=== PATIENT | female | born 1990 | race Caucasian/White ===

== ENCOUNTER 2016-09-28 15:00 | Inpatient (IN) | payer OTHER ==
--- NOTE | ~2016-09-28 | PN ---
Unit #: [id number] #: [id number] Patient: DENISE MCCLELLAND [id number] [facility] [address] [place] [address] [id number] MR#: [id number] NAME: DENISE MCCLELLAND. ROOM: P178 Age: 26 Sex: F Admission Date: 09/28/2016 : 1990 Attending Physician: Sanford Perry M.D. Admitting Physician: Sanford Perry M.D. Primary Care Physician: Primary Care Physician Lavonne ODELL PROGRESS NOTES DATE 09/30/2016 DISCUSSION The patient is abed today with little participation within the therapeutic milieu. She is reporting that she "feels unstable" and request medication "to get me stabilized" I have explained to the patient that it will not possible to "stabilize her" as long as she is a. homeless and b. continuously using drugs. She is expressing interest in residential chemical dependence treatment and I will ask a social media strategist to see her regarding this. Dictated by... Sanford Perry M.D. CB/americo TD: 09/30/2016 22:39 JOB #: [id number] [facility] PROGRESS NOTES Page 1 of 1 X Sanford Perry MD PROGRESS NOTE
--- NOTE | ~2016-09-28 | HP ---
Unit #: [id number] #: [id number] Patient: KARLA MCCLELLAND [id number] [place] [address] [id number] MR#: [id number] NAME: KARLA MCCLELLAND. ROOM: P178 Age: 26 Sex: F Admission Date: 09/28/2016 : 1990 Attending Physician: Sanford Perry M.D. Admitting Physician: Sanford Perry M.D. Primary Care Physician: Primary Care Physician No HISTORY AND PHYSICAL HISTORY OF PRESENT ILLNESS Karla is a 26 year old admitted to [facility] because of her continued polysubstance abuse which includes methamphetamine and heroin. PAST MEDICAL HISTORY Long history of polysubstance abuse to include IV drugs. PAST SURGICAL HISTORY x1. ALLERGIES No known drug allergies. SOCIAL HISTORY Smokes one pack per day. Denies alcohol. Admits to long history of illicit substance abuse to include methamphetamine and IV heroin. FAMILY HISTORY Medically noncontributory. REVIEW OF SYSTEMS CONSTITUTIONAL: No fever or chills. HEENT: Denies any sore throat, ear pain or runny nose. CARDIOVASCULAR: Denies chest pain, irregular heart rhythm or palpitations. CHEST: Denies shortness of breath or cough. No hemoptysis. GASTROINTESTINAL: Denies nausea, vomiting, diarrhea or chronic constipation. ENDOCRINE: Denies history of increased thirst or urination. No recent significant weight loss or gain. GENITOURINARY: Denies dysuria, frequency, or hematuria. SKIN: Denies any rashes. HEMATOLOGIC: Denies history of increased bleeding or bruising. MUSCULOSKELETAL: Denies any hot, swollen joints. No generalized muscle pain. NEUROLOGIC: Denies problems with vision or speech. No frequent, severe headaches. No numbness, tingling or weakness in any extremities. Denies loss of bladder or bowel control. CURRENT MEDICATIONS Detox protocol. PHYSICAL EXAMINATION GENERAL: Alert, well nourished. No apparent distress. Unit #: [id number] #: [id number] Patient: KARLA MCCLELLAND VITAL SIGNS: Blood pressure 116/72, heart rate 80, respirations 16, and temperature 98.6. WEIGHT: 138. HEIGHT: 5 feet 5 inches. SKIN: Warm and dry without rash or lesion. HEENT: Normocephalic. TMs not viewed. Oral and nasal passages clear. Conjunctivae clear. PERRLA. EOMs intact. NECK: Supple without lymphadenopathy or thyromegaly. HEART: Regular rate and rhythm without murmur. LUNGS: Clear. ABDOMEN: Soft, nontender. : Not done. EXTREMITIES: No evidence of cyanosis, clubbing or edema. Moves all without focal deficit. NEUROLOGICAL: Grossly within normal limits. Cranial Nerves: II: Visual stout are intact. III, IV AND : Extraocular movements are intact. Pupils are equal, round and reactive to light. V: Facial sensation is grossly normal. VII: Facial movements and expression are normal. VIII: Auditory acuity grossly intact. IX, X: Uvula is midline. Phonation is normal. XI: Patient shrugs shoulders and turns head normally. XII: Tongue protrudes in the midline. Sensory and Motor Function: Sensory and motor sensation is grossly normal. Motor: moves all extremities well. Coordination: Gait is normal. Deep Tendon Reflexes: Intact. IMPRESSION Psychiatric admission. RECOMMENDATIONS PSYCHIATRIC: Per psychiatrist. MEDICAL: I see no contraindication to participate in this facility's activities. MEDICAL PROGNOSIS Good. MEDICAL CONDITION Stable. Dictated by... Heike Mullins PAriAAri-C. for Stephen Suh/christine TD: 09/29/2016 08:41 JOB #: [id number] Unit #: [id number] #: [id number] Patient: KARLA MCCLELLAND HISTORY AND PHYSICAL Page 1 of 1 X Heike Mullins X HISTORY AND PHYSICAL
--- NOTE | ~2016-09-28 | CO ---
Unit #: [id number] #: [id number] Patient: KARLA MCCLELLAND [id number] [place] [address] [id number] MR#: [id number] NAME: KARLA MCCLELLAND. ROOM: P178 Age: 26 Sex: F Admission Date: 09/28/2016 : 1990 Attending Physician: Sanford Perry M.D. Primary Care Physician: Primary Care Physician No Consultation Date: 10/01/2016 CONSULTATION REPORT HISTORY OF PRESENT ILLNESS Karla has complaints of urinary frequency. She is unsure how long she has had this frequency. She also has complaints of mild lower back pain believes this could be due to detox. She is waking at night to urinate as well. No burning with urination. No blood in her urine. No fever. No other complaints. PHYSICAL EXAMINATION CARDIAC: Regular rate and rhythm. No murmurs, gallops, or rubs. RESPIRATORY: Clear to auscultation bilaterally. ABDOMEN: Bowel sounds positive in all four quadrants. No abdominal tenderness with palpation. No CVA tenderness or flank pain. DIAGNOSTIC STUDIES LABORATORY RESULTS: UA on 09/29/2016 shows positive nitrites. ASSESSMENT AND PLAN Urinary tract infection. We will begin Bactrim p.o. b.i.d. for 3 days. Please notify if symptoms are unresolved. Dictated by... Margarita Corbett A.P.R.N. for Stephen Suh/dasha TD: 10/01/2016 23:37 JOB #: [id number] CONSULTATION REPORT Page 1 of 1 X MARGARITA HANSEN APRN X CONSULTATION REPORT
--- NOTE | ~2016-09-28 | PA ---
Unit #: [id number] #: [id number] Patient: DENISE MCCLELLAND [id number] [place] [address] [id number] MR#: [id number] NAME: DENISE MCCLELLAND. ROOM: P178 Age: 26 Sex: F Admission Date: 09/28/2016 : 1990 Date of Assessment: 09/29/2016 Attending Physician: Sanford Perry M.D. Admitting Physician: Sanford Perry M.D. Primary Care Physician: Primary Care Physician No PSYCHIATRIC ASSESSMENT IDENTIFYING INFORMATION The patient is a 26-year-old white female admitted after voicing positive suicidal ideation with plan to overdose. CHIEF COMPLAINT None given. INFORMANT(S) Chart. Patient cannot be aroused for interview. HISTORY OF PRESENT ILLNESS The patient is a 26-year-old single white female admitted reporting abuse of multiple substances including Suboxone, Xanax, and methamphetamine. The patient reported plan to overdose on Xanax and opiates yesterday. After presenting to this facility she had been referred to the intensive outpatient program, but was instead referred to this program by court. The patient reports that she was recently kicked out of [facility] after having "called someone a name." The patient reports that she is attempting to get (1) __. When seen today, the patient was asleep and cannot be aroused for interview. For more complete history of present illness, please refer to previously dictated notes. PAST PSYCHIATRIC HISTORY Reviewed, no changes. PAST MEDICAL HISTORY Reviewed, no changes. MEDICATIONS Neurontin, Seroquel, and clonidine. ALLERGIES None. FAMILY HISTORY Reviewed, no changes. SOCIAL HISTORY Reviewed, no changes. MENTAL STATUS EXAMINATION Examination at this time reveals the patient to be a soundly sleeping white female appearing stated age. She is in no apparent physical Unit #: [id number] #: [id number] Patient: DENISE MCCLELLAND distress at the time of examination. Further testing is not possible secondary to the patient's somnolence. ASSETS AND LIABILITIES The patient's assets to be assessed. Liabilities: Lack of resources. DIAGNOSTIC IMPRESSION 1. Methamphetamine use disorder. 2. Opioid use disorder. 3. Sedative-hypnotic use disorder. 4. Mood disorder unspecified. TREATMENT PLAN The patient remains hospitalized for safety and stabilization. Home medications will be reinitiated with the exception of Neurontin which this physician appears may be used in concert with opioid medications to accentuate the euphorigenic effect. The patient will participate in appropriate order of milieu activities and suicide precautions are in place. Routine detoxification protocol has been ordered. ESTIMATED LENGTH OF STAY 3 to 5 days. Dictated by... Sanford Perry M.D. No TD: 09/29/2016 14:08 JOB #: [id number] PSYCHIATRIC ASSESSMENT Page 1 of 1 X Sanford Perry MD X PSYCHIATRIC ASSESSMENT
--- NOTE | ~2016-09-28 | DS ---
Unit #: [id number] #: [id number] Patient: DENISE MCCLELLAND [id number] [place] [address] [id number] MR#: [id number] NAME: DENISE MCCLELLAND. ROOM: 78 Age: 26 Sex: F Admission Date: 09/28/2016 : 1990 Discharge Date: 10/02/2016 Attending Physician: Sanford Perry M.D. Primary Care Physician: Primary Care Physician No DISCHARGE SUMMARY REASON FOR ADMISSION The patient is a 26-year-old white female admitted with a history of opioid, methamphetamine and alprazolam abuse. HOSPITAL COURSE The patient was admitted to the [facility] unit and placed on routine detoxification protocol for opioids and benzodiazepines. She remains seclusive to room with little participation within the therapeutic milieu. During her stay in the hospital she was begun on Bactrim for a urinary tract infection on 10/01/2016. But otherwise, her stay in the hospital was an uneventful one. On 10/02, she requested discharged and stated that she was in agreement with followup in the intensive outpatient program provided by this facility, discharge was ordered. DISCHARGE DIAGNOSES 1. Methamphetamine use disorder. 2. Psychostimulant use disorder. 3. Opioid use disorder. 4. Mood disorder, unspecified. 5. Urinary tract infection. FOLLOWUP CARE Followup to take place through the auspices of community mental health resources. She will also follow in the intensive outpatient program provided by this facility. DISCHARGE MEDICATIONS The patient is discharged on the following medications: 1. Bactrim 400 mg b.i.d. for urinary tract infection. 2. Seroquel 100 mg at bedtime for mood stabilization. PROGNOSIS Considered fair. DIET AND ACTIVITY No dietary or physical restrictions were placed on the patient at the time of discharge. Dictated by... Unit #: [id number] #: [id number] Patient: DENISE MCCLELLAND Sanford Perry M.D. CB/john TD: 10/02/2016 22:01 JOB #: [id number] DISCHARGE SUMMARY Page 1 of 1 X Sanford Perry MD X DISCHARGE SUMMARY
[2016-09-29 09:36] LABS: BASOPHIL% 0.6 % (0-2.5); EOSINOPHIL# 0.2 X10e3 (0-0.7); EOSINOPHIL% 3.1 % (0.0-7.0); HEMATOCRIT 37.4 % (35.0-45.0); HEMOGLOBIN 12.2 gm/dL (12.0-16.0); LYMPHOCYTE# 1.9 X10e3 (1.0-3.5); LYMPHOCYTE% 24.4 % (17.0-45.0); MEAN CELL VOLUME 90.3 FL (83-96); MEAN CORPUSCULAR HEMOGLOBIN 29.6 PG (28-34); MEAN CORPUSCULAR HGB CONC 32.7 g/dL (30-36); MEAN PLATELET VOLUME 8.8 FL (6.5-11.5); MONOCYTE# 0.6 X10e3 (0-1.0); MONOCYTE% 7.3 % (3.0-12.0); NEUTROPHIL# 4.9 X10e3 (1.5-7.1); NEUTROPHIL% 64.6 % (40-75); PLATELET COUNT 250 X10e3 (140-420); RED BLOOD COUNT 4.14 X10e (3.90-5.30); RED CELL DISTRIBUTION WIDTH 14.4 % (11.0-15.5); WHITE BLOOD COUNT 7.6 X10e3 (4.0-10.5)
[2016-09-29 09:51] LABS: DIFF IND NO
[2016-09-29 09:52] LABS: ALBUMIN SERUM 3.4 g/dL (3.5-5.0); BILIRUBIN,TOTAL 0.4 mg/dL (0.2-2.0); BUN/CREATININE RATIO 21.42; CALCIUM SERUM 8.7 mg/dL (8.4-10.2); CREATININE SERUM 0.7 mg/dL (0.6-1.4); GLOM FILT RATE Estimated 118.7 mL/min (>60); POTASSIUM 4.5 mmol/L (3.5-5.1); PROTEIN TOTAL SERUM 5.7 g/dL (6.0-8.3)
[2016-09-30 09:57] LABS: URINE APPEARANCE CLEAR; URINE BILIRUBIN NEG (NEG); URINE BLOOD NEG (NEG); URINE COLOR YELLOW; URINE GLUCOSE NEG (NEG); URINE KETONE NEG (NEG); URINE LEUKOCYTE ESTERASE 1+ (NEG); URINE NITRATE POS (NEG); URINE PROTEIN NEG (NEG); URINE SPECIFIC GRAVITY 1.011 (1.003-1.035); URINE UROBILINOGEN 0.2 MG/DL (NEG)
[2016-09-30 10:05] LABS: URINE BACTERIA AUWI 4+ (NEGATIVE); URINE SQUAMOUS EPITHELIAL CELL OCC /[HPF]
[2016-09-30 11:30] LABS: AMPHETAMINE NEG (NEG); BARBITURATES NEG (NEG); BENZODIAZEPINES POS (NEG); COCAINE NEG (NEG); MARIJUANA NEG (NEG); OPIATES NEG (NEG); TRICYCLIC ANTIDEPRESSANTS NEG (NEG); U METHADONE NEG (NEG)
== END 2016-10-02 14:34 | disposition home or self-care (01) | DRG 897 ==
LOC: P1E 16:00
PROVIDERS: Specialist
PROC: HZ2ZZZZ Detoxification Services for Substance Abuse Treatment (ICD-10-PCS; principal; 2016-09-28)
DX: F15.20 Other stimulant dependence, uncomplicated (principal); F11.20 Opioid dependence, uncomplicated; R45.851 Suicidal ideations; F13.20 Sedative, hypnotic or anxiolytic dependence, uncomplicated; N39.0 Urinary tract infection, site not specified; F39 Unspecified mood [affective] disorder; F17.210 Nicotine dependence, cigarettes, uncomplicated
CPT/HCPCS: 80053; 80307; 81003; 85025; 86592

== ENCOUNTER 2017-01-24 11:38 | Emergency (ER) | payer OTHER ==
[~2017-01-24] VITALS: Ht 165.1 cm; Wt 59.0 kg
--- NOTE | ~2017-01-24 | US60 ---
[facility] A Service of [facility] RADIOLOGY TEXT RESULTS PATIENT: DENISE MCCLELLAND LOCATION: [facility] : [birth year] UNIT #: [id number] AGE: [address]: Azalia Meier SEX: F ORDER DR: [id number] [facility] [address] [place], [place] [address] [id number] MR#: [id number] Acc #: [id number] NAME: DENISE MCCLELLAND. : 1990 SEX: F STUDY DATE/TIME: 01/24/2017 15:12 UNIT: AAKASH ROOM: STUDY DESCRIPTION: US /Mat <14Wk Ea Add Gest Attending Physician: Azalia Meier P.A.-C. Ordering Physician: Azalia Meier P.A.-C. Primary Care Physician: No Primary Care Physician MEDICAL IMAGING REPORT This report is preliminary unless electronic signature is present EXAM maternal ultrasound less than 14 weeks gestation. COMPARISON None INDICATION 26-year-old female with nausea and emesis for 3 days and vaginal bleeding for 2 weeks. Current . Beta hCG of 65,594 international units/mL. FINDINGS Uterus measures 8.2 cm x 6.3 cm x 7.6 cm. There is a single living intrauterine . Perigestational reaction is noted around the yolk sac. Average crown-rump length is 1.6 cm giving an estimated gestational age of 8 weeks 0 days plus or minus 5 days. A yolk sac is also noted. heart rate is 169 beats per minute. There is a small perigestational fluid collection, concerning for perigestational hemorrhage, measuring up to 1.6 cm x 0.9 cm in a single plane. Small amount of free fluid in the pelvis, likely physiologic. Ovaries are normal in appearance. The left ovary measures 2.8 cm x 1.6 cm x 2.4 cm and the left ovary demonstrates internal color and Doppler flow. The cervix is closed measuring 1.8 cm in length. The right ovary measures 3.1 cm x 1.9 cm x 2.5 cm with internal color and Doppler flow. IMPRESSION 1. Single living intrauterine with estimated gestational age of 8 weeks 0 days plus or minus 5 days. heart rate is 169 beats per minute. 2. There is a small perigestational fluid collection measuring up to 1.6 cm, most consistent with a small perigestational hemorrhage. The cervix currently appears closed. Clinical correlation recommended. Close obstetric followup and close imaging followup is recommended. [facility] A Service of [facility] RADIOLOGY TEXT RESULTS PATIENT: DEN[facility]CC[facility]AND [id number] [birth year] UNIT #: [id number] AGE: [address]: Azalia Meier SEX: F ORDER DR: 3. Normal sonographic evaluation of the ovaries without evidence of torsion. 4. Trace free fluid in the pelvis, likely physiologic. Dictated by... Tal Amin M.D. THIS IS AN ELECTRONICALLY VERIFIED REPORT Tal Amin M.D. at 01/31/2017 6:28 PM ALYSSA/roselia TD: 01/24/2017 18:46 JOB #: [id number] MEDICAL IMAGING REPORT Page 1 of 1 COPY
[2017-01-24 12:57] LABS: URINE SOURCE CLEAN CATCH
[2017-01-24 13:09] LABS: URINE APPEARANCE CLOUDY; URINE BLOOD NEG (NEG); URINE COLOR DK YELLOW; URINE GLUCOSE NEG (NEG); URINE KETONE 1+ (NEG); URINE LEUKOCYTE ESTERASE TRACE (NEG); URINE NITRATE NEG (NEG); URINE PH 5.5 (5-8); URINE PROTEIN 1+ (NEG); URINE SPECIFIC GRAVITY 1.031 (1.003-1.035)
[2017-01-24 13:10] LABS: CULTURE INDICATED? YES; URINE BACTERIA AUWI 1+ (NEGATIVE); URINE SQUAMOUS EPITHELIAL CELL MOD /[HPF]
[2017-01-24 13:15] LABS: URINE BILIRUBIN POS (NEG)
[2017-01-24 13:53] LABS: BASOPHIL# 0.1 X10e3 (0-0.3); BASOPHIL% 0.6 % (0-2.5); EOSINOPHIL# 0.1 X10e3 (0-0.7); EOSINOPHIL% 0.6 % (0.0-7.0); HEMATOCRIT 39.7 % (35.0-45.0); HEMOGLOBIN 13.2 gm/dL (12.0-16.0); LYMPHOCYTE% 17.2 % (17.0-45.0); MEAN CELL VOLUME 89.2 FL (83-96); MEAN CORPUSCULAR HEMOGLOBIN 29.8 PG (28-34); MEAN CORPUSCULAR HGB CONC 33.4 g/dL (30-36); MEAN PLATELET VOLUME 8.8 FL (6.5-11.5); MONOCYTE# 0.5 X10e3 (0-1.0); MONOCYTE% 4.6 % (3.0-12.0); NEUTROPHIL# 8.9 X10e3 (1.5-7.1); PLATELET COUNT 270 X10e3 (140-420); RED BLOOD COUNT 4.45 X10e (3.90-5.30); RED CELL DISTRIBUTION WIDTH 13.6 % (11.0-15.5); WHITE BLOOD COUNT 11.5 X10e3 (4.0-10.5)
[2017-01-24 13:54] LABS: DIFF IND NO
[2017-01-24 14:14] LABS: CALCIUM SERUM 8.9 mg/dL (8.4-10.2); CREATININE SERUM 0.6 mg/dL (0.6-1.4); GLOM FILT RATE Estimated 124.9 mL/min (>60); POTASSIUM 3.9 mmol/L (3.5-5.1)
[2017-01-27 21:29] LABS: CHLAMYDIA TRACH Not Detected (Not Detected); N GONOR Not Detected (Not Detected)
== END 2017-01-24 16:58 | disposition home or self-care (01) ==
LOC: CED 11:38
PROVIDERS: Physician Assistant
DX: O23.591 Infection of other part of genital tract in pregnancy, first trimester (principal); O20.8 Other hemorrhage in early pregnancy; F17.200 Nicotine dependence, unspecified, uncomplicated
CPT/HCPCS: 36415; 76802; 80048; 81003; 84702; 84703; 85025; 87086; 87491; 87591; 87808; 87905; 96372; 99284; J0696